=== PATIENT | male | born 1950 | race Caucasian/White ===

== ENCOUNTER 2024-04-02 10:32 | Emergency (ER) | payer OTHER ==
[~2024-04-02] VITALS: Ht 187.9 cm; Wt 108.9 kg
[~2024-04-02 10:32] MED LIST: AMLODIPINE BESYL5 MG PO; ATORVASTATIN CA20 M1 PO; ELIQUIS5 M1 PO; HYDR25T PO; IMDUR SA30 MG PO; LATANOPROST2.5 ML OP; LIPITOR40 MG PO; LISINOPRIL40 MG PO; LOPRESSOR50 M1 PO; NORVASC5 MG PO; VITAMIN D5000 UNI1 PO; Zestril,Prinivi40 MG PO; [UNRECOGNIZED DRUG - OTHER] OP
[2024-04-02 11:15] LABS: BASO # 0.1 10*3/uL (0.0-0.1); EOS # 0.5 10*3/uL (0.0-0.4); EOS % 6.5 % (1.0-4.0); LYMPH # 1.3 10*3/uL (1.3-4.4); LYMPH % 15.8 % (27.0-41.0); MEAN CELL VOLUME 82.1 fl (80.0-94.0); MEAN CORPUSCULAR HGB 25.4 pg (27.0-31.0); MEAN CORPUSCULAR HGB CONC 30.9 g/dl (33.0-37.0); MEAN PLATELET VOLUME 9.6 fl (9.6-12.3); MONO # 0.9 10*3/uL (0.1-1.0); MONO % 11.3 % (3.0-9.0); NEUT # 5.2 10*3/uL (2.3-7.9); PLATELET COUNT AUTOMATED 343 10*3/uL (130-400); RED BLOOD COUNT 5.36 10*6/uL (4.50-5.90); RED CELL DISTRI WIDTH 16.7 % (0-14.5)
[2024-04-02 11:28] LABS: ACT PARTIAL THROMBO TIME 30.8 SECONDS (20.0-32.1)
[2024-04-02 11:30] LABS: BILIRUBIN Negative (Negative); BLOOD Negative (Negative); CLARITY Cloudy (Clear); COLOR Yellow (Yellow); GLUCOSE Negative (Negative); KETONE Negative (Negative); LEUKO ESTERASE 2+ (Negative); NITRITE Positive (Negative); PH 6.5 (4.5-8.0); UROBILINOGEN 0.2 E.U./dl (0.0-1.0)
[2024-04-02 11:40] LABS: ALKALINE PHOSPHATASE 77 U/L (46-116); BUN 20 mg/dl (9-23); CHLORIDE 109 mmol/L (98-107); LIPASE 41 U/L (12-53); SGPT/ALT 15 U/L (5-49); TOTAL PROTEIN 6.7 gm/dL (6.0-8.0)
[2024-04-02 11:42] LABS: URINE AMPHETAMINES Negative (1000ng/ml); URINE BARBITURATES Negative (200ng/ml); URINE BENZODIAZEPINES Negative (200ng/ml); URINE CANNABINOIDS (THC) Negative (50ng/ml); URINE COCAINE Negative (300ng/ml); URINE METHADONE Negative (300ng/ml); URINE OPIATES Negative (300ng/ml); URINE PHENCYCLIDINE Negative (25ng/ml)
[2024-04-02 11:43] LABS: ETHYL ALCOHOL < 3.0 mg/dl (<3)
[2024-04-02 11:56] LABS: BACTERIA 2+; MUCOUS 1+; WBC 21-30 wbc/hpf (0-5)
[2024-04-02] MEDS ORDERED: DOXEPIN25 MG PO (13:42)
== END 2024-04-02 13:59 | disposition home or self-care (01) ==
LOC: ED 10:32
PROVIDERS: Internal Medicine
DX: G47.00 Insomnia, unspecified (principal); F41.9 Anxiety disorder, unspecified; Z72.0 Tobacco use; I25.10 Atherosclerotic heart disease of native coronary artery without angina pectoris; F31.9 Bipolar disorder, unspecified; F12.90 Cannabis use, unspecified, uncomplicated; Z98.890 Other specified postprocedural states

== ENCOUNTER 2024-12-29 19:20 | Emergency (ER) | payer OTHER ==
[~2024-12-29] VITALS: Ht 187.9 cm; Wt 117.9 kg
[~2024-12-29 19:20] MED LIST changes: +DOXEPIN25 MG PO
[2024-12-29] MEDS ORDERED: Pantoprazole Sodium 40 MG VIAL IV ONE ×2 (19:35)
[2024-12-29] MEDS ORDERED: methylPREDNISolone sod succ 125 MG VIAL IV ONE (19:35)
[2024-12-29 19:57] LABS: BASO # 0.1 10*3/uL (0.0-0.1); BASO % 0.8 % (0.0-1.0); EOS # 0.4 10*3/uL (0.0-0.4); EOS % 4.1 % (1.0-4.0); HEMATOCRIT 52.2 % (42.0-52.0); MEAN CELL VOLUME 83.7 fl (80.0-94.0); MEAN CORPUSCULAR HGB 26.9 pg (27.0-31.0); MEAN CORPUSCULAR HGB CONC 32.2 g/dl (33.0-37.0); MEAN PLATELET VOLUME 9.2 fl (9.6-12.3); MONO % 9.5 % (3.0-9.0); NEUT # 7.1 10*3/uL (2.3-7.9); NEUT % 68.8 % (47.0-73.0); PLATELET COUNT AUTOMATED 257 10*3/uL (130-400); RED BLOOD COUNT 6.24 10*6/uL (4.50-5.90); RED CELL DISTRI WIDTH 19.5 % (0-14.5); WHITE BLOOD COUNT 10.3 10*3/uL (4.8-10.8)
[2024-12-29 20:16] LABS: POTASSIUM 3.9 mmol/L (3.4-5.1)
== END 2024-12-29 22:23 | disposition home or self-care (01) ==
LOC: ED 19:20
PROVIDERS: Internal Medicine
DX: K22.6 Gastro-esophageal laceration-hemorrhage syndrome (principal); F31.9 Bipolar disorder, unspecified; F41.9 Anxiety disorder, unspecified; Z79.899 Other long term (current) drug therapy